=== PATIENT | male | born 1950 | race Caucasian/White ===

== ENCOUNTER 2021-05-06 12:48 | Inpatient (IN) | payer OTHER ==
[~2021-05-06] VITALS: Ht 167.6 cm; Wt 81.6 kg
[2021-05-06 13:27] LABS: HEMOGLOBIN 12.8 gm/dl (14.0-17.5); RED BLOOD COUNT 4.1 M/UL (4.20-5.50)
[2021-05-06] MEDS ORDERED: LISINOPRIL10 MG PO (16:26)
[2021-05-06] MEDS ORDERED: ATORVASTATIN CA40 MG PO (16:26)
[2021-05-06] MEDS ORDERED: GLIMEPIRIDE4 MG PO (16:26)
[2021-05-06] MEDS ORDERED: HYDROCHLOROTHIA25 MG PO (16:26)
[2021-05-06] MEDS ORDERED: ASPIRIN EC81 MG PO (16:27)
[2021-05-06] MEDS ORDERED: BENZONATATE100 MG PO (16:27)
[2021-05-06] MEDS ORDERED: METFORMIN HCL1000 MG PO (16:27)
[2021-05-07 05:28] LABS: HEMOGLOBIN 11.6 gm/dl (14.0-17.5); RED BLOOD COUNT 3.8 M/UL (4.20-5.50)
[2021-05-07 05:36] LABS: WHITE BLOOD COUNT 4.1 K/UL (4.5-11.0)
--- NOTE | 2021-05-07 22:20 | NUR ---
BS-414. NOTIFIED MD AND RECIEVED ORDERS FOR 10 UNITS HUMOLOG. ADMINISTERED ORDERED. WILL CONTINUE TO MONITOR.
--- NOTE | 2021-05-09 00:31 | NUR ---
PT GOT UP TO USE RESTROOM. SATS DROPPED TO 82%. NOTIFIED MD AND RECIEVED ORDERS TO PLACE PT ON AIRVO. RESPIRATORY ON FLOOR. SATS POST OXYGEN TITRATION IS 92% ON 55L 65% AIRVO. WILL CONTINUE TO MONITOR.
[2021-05-10 03:23] LABS: HEMOGLOBIN 11.1 gm/dl (14.0-17.5); RED BLOOD COUNT 3.71 M/UL (4.20-5.50); WHITE BLOOD COUNT 12.7 K/UL (4.5-11.0)
[2021-05-10 03:45] LABS: BUN/CREATININE RATIO 35 (0-10)
[2021-05-11 06:58] LABS: HEMOGLOBIN 11.1 gm/dl (14.0-17.5); RED BLOOD COUNT 3.73 M/UL (4.20-5.50); WHITE BLOOD COUNT 12.8 K/UL (4.5-11.0)
[2021-05-11 07:32] LABS: BUN/CREATININE RATIO 32 (0-10)
[2021-05-12 06:28] LABS: HEMOGLOBIN 10.4 gm/dl (14.0-17.5); RED BLOOD COUNT 3.4 M/UL (4.20-5.50); WHITE BLOOD COUNT 11.7 K/UL (4.5-11.0)
[2021-05-12 09:00] LABS: BUN/CREATININE RATIO 30 (0-10)
[2021-05-13 03:36] LABS: HEMOGLOBIN 11.7 gm/dl (14.0-17.5); WHITE BLOOD COUNT 12.1 K/UL (4.5-11.0)
[2021-05-13 03:38] LABS: RED BLOOD COUNT 3.84 M/UL (4.20-5.50)
[2021-05-13 03:51] LABS: BUN/CREATININE RATIO 31 (0-10)
--- NOTE | 2021-05-13 04:28 | NUR ---
PATIENT HAS A MAG OF 1.4 WITH NO PROTOCOL. NOTIFIED DR. DICKEY; ORDER FOR POTASSIUM AND MAG PROTOCOL.
[2021-05-14 03:43] LABS: HEMOGLOBIN 10.8 gm/dl (14.0-17.5); RED BLOOD COUNT 3.47 M/UL (4.20-5.50); WHITE BLOOD COUNT 11.1 K/UL (4.5-11.0)
[2021-05-14 03:54] LABS: BUN/CREATININE RATIO 34 (0-10)
[2021-05-15 03:22] LABS: HEMOGLOBIN 10.6 gm/dl (14.0-17.5); RED BLOOD COUNT 3.45 M/UL (4.20-5.50); WHITE BLOOD COUNT 10.3 K/UL (4.5-11.0)
--- NOTE | 2021-05-15 12:18 | NUR ---
PT O2 SATS 87% ROOM AIR
== END 2021-05-15 15:22 | disposition home or self-care (01) | DRG 177 ==
LOC: ER1 12:48 → CDU 15:33 → M/S 15:33
PROVIDERS: Internal Medicine; Internal Medicine Nephrology; Physician Assistant Medical; Student in an Organized Health Care Education/Training Program; ADMIT Internal Medicine
PROC: 8E0ZXY6 Isolation (ICD-10-PCS; principal; 2021-05-06)
PROC: 3E0333Z Introduction of Anti-inflammatory into Peripheral Vein, Percutaneous Approach (ICD-10-PCS; 2021-05-06)
PROC: 5A0955A Assistance with Respiratory Ventilation, Greater than 96 Consecutive Hours, High Flow/Velocity Cannula (ICD-10-PCS; 2021-05-08)
DX: U07.1 COVID-19 (principal); J12.82 Pneumonia due to coronavirus disease 2019; J96.01 Acute respiratory failure with hypoxia; N17.9 Acute kidney failure, unspecified; I12.9 Hypertensive chronic kidney disease with stage 1 through stage 4 chronic kidney disease, or unspecified chronic kidney disease; E87.6 Hypokalemia; R80.9 Proteinuria, unspecified; E78.5 Hyperlipidemia, unspecified; N18.30 Chronic kidney disease, stage 3 unspecified; E11.22 Type 2 diabetes mellitus with diabetic chronic kidney disease; Z90.89 Acquired absence of other organs; Z98.890 Other specified postprocedural states; Z83.3 Family history of diabetes mellitus; Z87.891 Personal history of nicotine dependence; Z79.4 Long term (current) use of insulin; Z79.899 Other long term (current) drug therapy; Z79.82 Long term (current) use of aspirin
CPT/HCPCS: 36415; 36600; 71045; 80048; 80053; 81001; 82550; 82553; 82570; 82803; 82962; 83036; 83735; 83880; 84133; 84156; 84300; 84484; 85025; 85027; 85379; 85652; 86140; 93005; 94760; 96374; 96375; 97116; 97116-GP-CQ; 97161; 99285; J0456; J0696; J1100; J1650; J3475; J7030; P9047; Q9967; U0002